=== PATIENT | female | born 1965 | race Caucasian/White ===

== ENCOUNTER → 2016-10-02 | Outpatient (CLI) | payer BC ==
--- NOTE | 2016-10-02 16:49 | MAMMOGRAPHY REPORT ---
BILATERAL DIGITAL SCREENING MAMMOGRAM TOMOSYNTHESIS WITH CAD: 10/02/2016 CLINICAL HISTORY: Routine screening. Patient has no complaints. TECHNIQUE: Breast tomosynthesis in addition to standard 2D mammography was performed. Current study was also evaluated with a Computer Aided Detection (CAD) system. COMPARISON: Comparison is made to exams dated: 09/18/2015 mammogram, 08/18/2013 mammogram, 09/07/2014 m ammogram, 08/13/2012 mammogram, 07/22/2011 mammogram, and 07/18/2010 mammogram - [facility]. BREAST COMPOSITION: The tissue of both breasts is heterogeneously dense, which may obscure small ma sses. FINDINGS: No suspicious masses, calcifications, or areas of architectural distortion are noted in e ither breast. There has been no significant interval change compared to prior exams. IMPRESSION: ACR BI-RADS CATEGORY 1: NEGATIVE There is no mammographic evidence of malignancy. A 1 year screening mammogram is recommended. The p atient will receive written notification of the results. Approximately 10% of breast cancers are not detected with mammography. A negative mammographic repor t should not delay biopsy if a clinically suggestive mass is present. Danyelle Pandey M.D. ah/:10/02/2016 15:57:36 Back Tender: Craig SANTOYO(R)(M), [facility] letter sent: Normal 1/2 BI-RADS Code: ACR BI-RADS Category 1: Negative
== END | disposition home or self-care (01) ==
LOC: C.MAMM 15:09
PROVIDERS: ATTEND Family Medicine
DX: Z12.31 Encounter for screening mammogram for malignant neoplasm of breast (principal)

== ENCOUNTER 2017-06-08 11:17 | Emergency (ER) | payer OTHER, BC ==
[~2017-06-08] VITALS: Ht 157.5 cm; Wt 70.5 kg
[2017-06-08 11:43] VITALS: TEMP 36.7; Ht 157.5 cm; Wt 70.5 kg
[2017-06-08] MEDS ORDERED: SODIUM CHLORIDE 0.9% 1000ML 1,000 ML IV STA (12:17)
[2017-06-08] MEDS ORDERED: ONDANSETRON INJ 2 MG/ML 2 ML VIAL IV STA ×2 (12:17→13:01)
[2017-06-08] MEDS ORDERED: MECLIZINE HCL 25 MG TAB PO STA (12:17)
[2017-06-08 12:52] LABS: BASO % 0.2 %; BASO ABS # 0.02 K/uL (0-0.2); COMPLETE YES; EOS % 0.7 %; HEMATOCRIT 43.1 % (37-47); IG% 0.2 %; LYMPH % 12.8 %; LYMPH ABS # 1.06 K/uL (1.2-3.4); MEAN CELL VOLUME 93.7 fL (80-100); MEAN CORPUSCULAR HEMOGLOBIN 32.4 pg (25-34); MEAN CORPUSCULAR HGB CONC 34.6 g/dl (32-36); MEAN PLATELET VOLUME 9.9 fL (7.4-10.4); MONO % 4.7 %; NEUT % 81.4 %; PLATELET COUNT 227 K/uL (130-400); WHITE BLOOD COUNT 8.25 K/uL (4.8-10.8)
[2017-06-08] MEDS ORDERED: MoRPHine SULFATE 4 MG/ML 1 ML CARP\\VIAL IV STA (13:01)
[2017-06-08] MEDS ORDERED: METH2.5T PO (13:01)
[2017-06-08] MEDS ORDERED: SUMA50TA15 PO (13:01)
[2017-06-08] MEDS ORDERED: FLV1 PO (13:01)
[2017-06-08 13:13] LABS: ALT/SGPT 41 U/L (12-78); AST/SGOT 25 U/L (15-37); BLOOD UREA NITROGEN 17 mg/dl (7-18); BUN/CREATININE RATIO 24.5 (10-20); CALCIUM 9.3 mg/dl (8.5-10.1); CARBON DIOXIDE 24 mmol/L (21-32); CHLORIDE 107 mmol/L (98-107); CREATININE 0.69 mg/dl (0.60-1.20); GLUCOSE 90 mg/dl (70-99); POTASSIUM 3.4 mmol/L (3.5-5.1); SODIUM 142 mmol/L (136-145)
[2017-06-08 13:15] LABS: ALKALINE PHOSPHATASE 134 U/L (45-117)
--- NOTE | 2017-06-08 13:30 | DIAGNOSTIC IMAGING REPORT ---
CALVARIUM 2 VIEWS CLINICAL HISTORY: Shunt series. History of brain tumor resection. FINDINGS: AP and lateral calvarial radiographs are correlated with CT of the brain dated 06/08/2017. The skeletal structures are well mineralized. There are postoperative changes from occipital craniectomy. A right parietal ishan hole is noted. No calvarial fracture is seen. A shunt catheter is faintly visualized and projects over the lateral ventricles. The catheter is not well evaluated. The visualized nasal sinuses appear clear. IMPRESSION: 1. No acute bony abnormality is seen. 2. Postoperative change from occipital craniectomy as above. 3. A shunt catheter is faintly visualized and projects over the ventricles. This is not well assessed and was much better evaluated on the recent CT scan. Electronically signed by: Mihai Dukes M.D. 06/08/2017 1:29 PM Dictated Date/Time: 06/08/2017 1:26 PM
--- NOTE | 2017-06-08 13:39 | DIAGNOSTIC IMAGING REPORT ---
ABDOMEN 2 VIEWS HISTORY: shunt series COMPARISON: FINDINGS: There is no pneumoperitoneum or pneumatosis. The bowel gas pattern is unremarkable. No evidence for bowel obstruction. No renal or ureteral calculi. A shunt catheter is not clearly identified. IMPRESSION: A shunt catheter is not clearly identified within the abdomen or pelvis. Electronically signed by: Donnie Beach M.D. 06/08/2017 1:37 PM Dictated Date/Time: 06/08/2017 1:36 PM
--- NOTE | 2017-06-08 13:42 | DIAGNOSTIC IMAGING REPORT ---
CHEST 2 VIEWS ROUTINE CLINICAL HISTORY: shunt series COMPARISON STUDY: No previous studies for comparison. FINDINGS: The cardiac and mediastinal contours are normal. There is no failure. There is no focal pulmonary consolidation. There is a tiny metallic clip in the right superior anterior mediastinal region[. No pleural effusions are visualized. No radiopaque shunt tubing is delineated. IMPRESSION: 1. No active disease in the chest 2. No radiopaque shunt tubing is visualized. Electronically signed by: Enrrique Marte M.D. 06/08/2017 1:41 PM Dictated Date/Time: 06/08/2017 1:39 PM
--- NOTE | 2017-06-08 13:48 | DIAGNOSTIC IMAGING REPORT ---
CERVICAL SPINE 2 OR 3 VIEWS CLINICAL HISTORY: shunt series history of brain tumor and shunt. COMPARISON STUDY: No previous studies for comparison. FINDINGS: There are multilevel degenerative changes. There is mild anterolisthesis of C4 on C5 likely degenerative. There is a mild levoscoliosis. No fractures are visualized. There are faint curvilinear densities within the right neck. It is unclear whether this represents a faintly opaque shunt catheter, or calcification surrounding a shunt catheter which has been previously removed. Clinical correlation this regard will be necessary. There is a tiny radiopaque density projected over the vena cava. This could represent a radiopaque marker of a shunt catheter. IMPRESSION: 1. Multilevel degenerative change 2. Faint curvilinear densities within the right neck. Is unclear whether these represent a faintly opaque shunt catheter, or calcification surrounding the shunt catheter which has been previously removed. Clinical correlation in this regard will be necessary. Electronically signed by: Enrrique Marte M.D. 06/08/2017 1:46 PM Dictated Date/Time: 06/08/2017 1:42 PM
--- NOTE | 2017-06-08 14:19 | DIAGNOSTIC IMAGING REPORT ---
Brain MRI WITHOUT CONTRAST HISTORY: Severe headache. trauma ? Bleed TECHNIQUE: Multiplanar multisequence MRI of the brain was performed without the use of contrast. COMPARISON STUDY: Head CT 06/08/2017. Brain MRI 11/15/2010. FINDINGS: There is no mass, hematoma, midline shift, acute infarct. Encephalomalacia within the inferior cerebellum remains unchanged. Surrounding increased T2 signal favors scoliosis. 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 Right ventriculostomy catheter crosses the midline and terminates in the body of the left lateral ventricle. The major vascular flow-voids at the skull base are well-maintained. Moderate mucosal thickening within the left max a sinus and small fluid levels within the maxillary sinuses. The mastoid air cells are clear. 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 Evidence for occipital craniectomy. IMPRESSION: 1. Acute on chronic maxillary sinusitis. 2. Otherwise, no significant change in the postoperative changes and chronic changes as described above. No acute intracranial abnormality. Specifically, there is no hemorrhage identified within the right frontal lobe. 3. Right ventriculostomy catheter is unchanged in position. 4. 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 Electronically signed by: Donnie Beach M.D. 06/08/2017 2:18 PM Dictated Date/Time: 06/08/2017 2:08 PM
[2017-06-08 14:49] VITALS: BP 142/82; PULSE 77; O2SAT 99
--- NOTE | 2017-06-08 15:11 | EMERGENCY ROOM VISIT NOTE ---
History Report prepared by Bobo: Jennifer Gonzalez Under the Supervision of: Dr. Sami Cerna D.O. First contact with patient: 11:57 Chief Complaint: HEAD INJURY (MAJOR) Stated Complaint: HEAD INJURY-WORK RELATED INJURY History of Present Illness The patient is a 51 year old female who presents to the Emergency Room with complaints of a persistent headache that began three days ago. She currently rates her discomfort as a 10/10 in severity. The patient states that at work this past Thursday she hit her head on a dryer door. She states that she did not think anything of the headache she developed after the event. The patient states that today while at work her headache worsened and she became dizzy. 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 The patient states that after going back to occupational health after the CT they suggested a repeat CT scan tomorrow. She states that she was additionally told to come to the emergency department since her headache is unbearable. The patient states that her vision was shaky this morning. She reports a history of a benign brain tumor at 3 years old and states that she had a shunt placed. The patient denies fevers, chest pain, shortness of breath, nausea, vomiting, diarrhea, weakness, numbness, pain with urination, and melena. Source of History: patient Onset: three days ago Position: head Symptom Intensity: 10/10 Quality: ache Timing: other (persistent) Note: Associated Symptoms: dizziness, shaky vision Review of Systems See HPI for pertinent positives & negatives. A total of 10 systems reviewed and were otherwise negative. Past Medical & Surgical Medical Problems: (1) Benign brain tumor Surgical Problems: (1) History of brain shunt Family History No pertinent family history stated Social History Smoking Status: Never Smoker Marital Status: Housing Status: lives with significant other Occupation Status: employed Current/Historical Medications Scheduled Folic Acid (Folic Acid), 1 TAB PO DAILY Methotrexate (Methotrexate), 6 TAB PO WK Sumatriptan Succinate (Imitrex), 50 MG PO PRN Allergies Coded Allergies: No Known Allergies (Verified , 06/08/17) Physical Exam Vital Signs Date Time Temp Pulse Resp B/P (MAP) Pulse Ox O2 Delivery O2 Flow Rate FiO2 06/08/17 14:49 77 16 142/82 99 06/08/17 14:08 77 16 140/82 99 Room Air 06/08/17 13:22 78 18 151/97 100 Room Air 06/08/17 12:30 73 16 138/96 100 Room Air 06/08/17 11:48 18 06/08/17 11:43 36.7 83 18 149/100 99 Room Air Physical Exam GENERAL: Sitting up in bed, alert, well appearing, well nourished, no distress, non-toxic EYE EXAM: normal conjunctiva. PERRL and EOM's intact. OROPHARYNX: no exudate, no erythema, lips, buccal mucosa, and tongue normal and mucous membranes are moist NECK: supple, no nuchal rigidity, no adenopathy, non-tender LUNGS: Clear to auscultation. Normal chest wall mechanics HEART: no murmurs, S1 normal and S2 normal ABDOMEN: abdomen soft, non-tender, normo-active bowel sounds, no masses, no rebound or guarding. BACK: Back is symmetrical on inspection and there is no deformity, no midline tenderness, no CVA tenderness. SKIN: no rashes and no bruising UPPER EXTREMITIES: upper extremities are grossly normal. LOWER EXTREMITIES: No pitting edema. NEURO EXAM: Normal sensorium, cranial nerves II-XII intact, normal speech, no weakness of arms, no weakness of legs. No drift. Finger to nose intact. Gross sensation intact. Medical Decision & Procedures ER Provider Diagnostic Interpretation: Radiology results as stated below per my review and the radiologist's interpretation: CHEST 2 VIEWS ROUTINE CLINICAL HISTORY: shunt series COMPARISON STUDY: No previous studies for comparison. FINDINGS: The cardiac and mediastinal contours are normal. There is no failure. There is no focal pulmonary consolidation. There is a tiny metallic clip in the right superior anterior mediastinal region[. No pleural effusions are visualized. No radiopaque shunt tubing is delineated. IMPRESSION: 1. No active disease in the chest 2. No radiopaque shunt tubing is visualized. Electronically signed by: Enrrique Marte M.D. 06/08/2017 1:41 PM Dictated Date/Time: 06/08/2017 1:39 PM CERVICAL SPINE 2 OR 3 VIEWS CLINICAL HISTORY: shunt series history of brain tumor and shunt. COMPARISON STUDY: No previous studies for comparison. FINDINGS: There are multilevel degenerative changes. There is mild anterolisthesis of C4 on C5 likely degenerative. There is a mild levoscoliosis. No fractures are visualized. There are faint curvilinear densities within the right neck. It is unclear whether this represents a faintly opaque shunt catheter, or calcification surrounding a shunt catheter which has been previously removed. Clinical correlation this regard will be necessary. There is a tiny radiopaque density projected over the vena cava. This could represent a radiopaque marker of a shunt catheter. IMPRESSION: 1. Multilevel degenerative change 2. Faint curvilinear densities within the right neck. Is unclear whether these represent a faintly opaque shunt catheter, or calcification surrounding the shunt catheter which has been previously removed. Clinical correlation in this regard will be necessary. Electronically signed by: Enrrique Marte M.D. 06/08/2017 1:46 PM Dictated Date/Time: 06/08/2017 1:42 PM ABDOMEN 2 VIEWS HISTORY: shunt series COMPARISON: FINDINGS: There is no pneumoperitoneum or pneumatosis. The bowel gas pattern is unremarkable. No evidence for bowel obstruction. No renal or ureteral calculi. A shunt catheter is not clearly identified. IMPRESSION: A shunt catheter is not clearly identified within the abdomen or pelvis. Electronically signed by: Donnie Beach M.D. 06/08/2017 1:37 PM Dictated Date/Time: 06/08/2017 1:36 PM CALVARIUM 2 VIEWS CLINICAL HISTORY: Shunt series. History of brain tumor resection. FINDINGS: AP and lateral calvarial radiographs are correlated with CT of the brain dated 06/08/2017. The skeletal structures are well mineralized. There are postoperative changes from occipital craniectomy. A right parietal ishan hole is noted. No calvarial fracture is seen. A shunt catheter is faintly visualized and projects over the lateral ventricles. The catheter is not well evaluated. The visualized nasal sinuses appear clear. IMPRESSION: 1. No acute bony abnormality is seen. 2. Postoperative change from occipital craniectomy as above. 3. A shunt catheter is faintly visualized and projects over the ventricles. This is not well assessed and was much better evaluated on the recent CT scan. Electronically signed by: Mihai Dukes M.D. 06/08/2017 1:29 PM Dictated Date/Time: 06/08/2017 1:26 PM Brain MRI WITHOUT CONTRAST HISTORY: Severe headache. trauma ? Bleed TECHNIQUE: Multiplanar multisequence MRI of the brain was performed without the use of contrast. COMPARISON STUDY: Head CT 06/08/2017. Brain MRI 11/15/2010. FINDINGS: There is no mass, hematoma, midline shift, acute infarct. Encephalomalacia within the inferior cerebellum remains unchanged. Surrounding increased T2 signal favors scoliosis. 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 Right ventriculostomy catheter crosses the midline and terminates in the body of the left lateral ventricle. The major vascular flow-voids at the skull base are well-maintained. Moderate mucosal thickening within the left max a sinus and small fluid levels within the maxillary sinuses. The mastoid air cells are clear. 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 Evidence for occipital craniectomy. IMPRESSION: 1. Acute on chronic maxillary sinusitis. 2. Otherwise, no significant change in the postoperative changes and chronic changes as described above. No acute intracranial abnormality. Specifically, there is no hemorrhage identified within the right frontal lobe. 3. Right ventriculostomy catheter is unchanged in position. 4. 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 Electronically signed by: Donnie Beach M.D. 06/08/2017 2:18 PM Dictated Date/Time: 06/08/2017 2:08 PM Laboratory Results 06/08/17 12:30 Red Blood Count 4.60, Mean Corpuscular Volume 93.7, Mean Corpuscular Hemoglobin 32.4, Mean Corpuscular Hemoglobin Concent 34.6, Mean Platelet Volume 9.9, Neutrophils (%) (Auto) 81.4, Lymphocytes (%) (Auto) 12.8, Monocytes (%) (Auto) 4.7, Eosinophils (%) (Auto) 0.7, Basophils (%) (Auto) 0.2, Neutrophils # (Auto) 6.70, Lymphocytes # (Auto) 1.06, Monocytes # (Auto) 0.39, Eosinophils # (Auto) 0.06, Basophils # (Auto) 0.02 06/08/17 12:30 Test 06/08/17 12:30 White Blood Count 8.25 K/uL (4.8-10.8) Red Blood Count 4.60 M/uL (4.2-5.4) Hemoglobin 14.9 g/dL (12.0-16.0) Hematocrit 43.1 % (37-47) Mean Corpuscular Volume 93.7 fL (80-100) Mean Corpuscular Hemoglobin 32.4 pg (25-34) Mean Corpuscular Hemoglobin Concent 34.6 g/dl (32-36) Platelet Count 227 K/uL (130-400) Mean Platelet Volume 9.9 fL (7.4-10.4) Neutrophils (%) (Auto) 81.4 % Lymphocytes (%) (Auto) 12.8 % Monocytes (%) (Auto) 4.7 % Eosinophils (%) (Auto) 0.7 % Basophils (%) (Auto) 0.2 % Neutrophils # (Auto) 6.70 K/uL (1.4-6.5) Lymphocytes # (Auto) 1.06 K/uL (1.2-3.4) Monocytes # (Auto) 0.39 K/uL (0.11-0.59) Eosinophils # (Auto) 0.06 K/uL (0-0.5) Basophils # (Auto) 0.02 K/uL (0-0.2) RDW Standard Deviation 46.0 fL (36.4-46.3) RDW Coefficient of Variation 13.5 % (11.5-14.5) Immature Granulocyte % (Auto) 0.2 % Immature Granulocyte # (Auto) 0.02 K/uL (0.00-0.02) Anion Gap 11.0 mmol/L (3-11) Est Creatinine Clear Calc Drug Dose 88.7 ml/min Estimated GFR () 116.8 Estimated GFR (Non- 100.8 BUN/Creatinine Ratio 24.5 (10-20) Calcium Level 9.3 mg/dl (8.5-10.1) Total Bilirubin 0.7 mg/dl (0.2-1) Direct Bilirubin < 0.1 mg/dl (0-0.2) Aspartate Amino Transf (AST/SGOT) 25 U/L (15-37) Alanine Aminotransferase (ALT/SGPT) 41 U/L (12-78) Alkaline Phosphatase 134 U/L (45-117) Total Protein 7.9 gm/dl (6.4-8.2) Albumin 4.3 gm/dl (3.4-5.0) Laboratory results per my review. Medications Administered Medications (Trade) Dose Ordered Sig/Pablo Route Start Time Stop Time Status Last Admin Dose Admin Sodium Chloride 1,000 ml @ 999 mls/hr Q1H1M STAT IV 06/08/17 12:17 06/08/17 13:17 DC 11/20/17 12:17 999 MLS/HR Ondansetron HCl (Zofran Inj) 4 mg NOW STAT IV 06/08/17 12:17 06/08/17 12:20 DC 06/08/17 12:35 4 MG Meclizine HCl (Antivert Tab) 25 mg NOW STAT PO 06/08/17 12:17 06/08/17 12:20 DC 06/08/17 12:35 25 MG Morphine Sulfate (MoRPHine SULFATE INJ) 4 mg NOW STAT IV 06/08/17 13:01 06/08/17 13:03 DC 06/08/17 13:24 4 MG Ondansetron HCl (Zofran Inj) 4 mg NOW STAT IV 06/08/17 13:01 06/08/17 13:03 DC 06/08/17 13:24 4 MG ED Course ED COURSE: Vital signs were reviewed and showed normal vitals The patients medical record was reviewed The above diagnostic studies were performed and reviewed. ED treatments and interventions as stated above. 1208: The patient was evaluated in room C8. A complete history and physical examination was performed. 1217: Ordered Antivert Tab 25 mg PO, Zofran Inj 4 mg IV, Sodium Chloride 1000 ml @ 999 mls/hr IV. 1224: I spoke to Dr. Santa, Radiology at this time. He recommends an MRI of the brain. 1244: I reevaluated the patient and she is resting. I updated her on the plan at this time. 1301: Ordered Zofran Inj 4 mg IV, Morphine Sulfate 4 mg IV. 1358: I reevaluated the patient and she is at MRI. 1425: Upon reevaluation, the patient is feeling significantly better.I discussed my findings with the patient and she understands and agrees with the treatment plan. Based on the patients age, coexisting illnesses, exam and lab findings the decision to treat as an outpatient was made. The patient remained stable while under my care. The patient appeared well at the time of discharge. Medical Decision Differential Diagnosis includes but is not limited to headache, tension headache , cluster headache, migraine, subarachnoid hemorrhage, meningitis, mass, central venous thrombus, concussion, trauma and epidural/subdural hemorrhage. Patient is a 51-year-old female who presents to ER for headache associated with dizziness. She notes the headache started Thursday when she hit her head on the washer while at work. The dizziness started today. She had a CT of her head which showed a hyperdensity in recommended repeat imaging 12 hours. She is referred in by her physician. Completely neurologically intact. CBC all BMP, LFTs, bilirubin was unremarkable. CT head was reviewed. Discussed with radiology. Multiple previous MRIs of the brain did not show this hyperdensity. Favor likely calcification. She does have a tracheostomy in place. X-rays of the neck chest and abdomen were performed and showed no shunt. Patient does not remember having this removed but appears as though at some point was removed rather than this being disconnected. No enlarged ventricles. MRI was performed and does not show the hyperdensity suggesting that this is likely a calcification is clearly not a bleed. Patient was updated bedside. She was given IV morphine. She notes she feels significant better. She was discharged follow-up with her physician tomorrow as this is likely a result of a concussion. Discussed with Pt concerning signs and symptoms to watch out for. Pt was instructed to follow up with their PCP and discussed with the patient their option to return to the ED at anytime for persistent or worsening symptoms. The appropriate anticipatory guidance and out-patient management, including indications for return to the emergency department, were explained at length to the patient and understood. Medication Reconcilliation Current Medication List: was personally reviewed by me Blood Pressure Screening Patient's blood pressure: Normal blood pressure Blood pressure disposition: Did not require urgent referral Consults Time Called: 1220 Consulting Physician: Dr. Santa, Radiology Returned Call: [address] Santa, Radiology at this time. He recommends an MRI of the brain. Impression Primary Impression: Concussion Additional Impression: Closed head injury Scribe Attestation The scribe's documentation has been prepared under my direction and personally reviewed by me in its entirety. I confirm that the note above accurately reflects all work, treatment, procedures, and medical decision making performed by me. Departure Information Dispostion Home / Self-Care Referrals Elena Pérez D.O. (PCP) Forms HOME CARE DOCUMENTATION FORM, IMPORTANT VISIT INFORMATION Patient Instructions ED Concussion, My [facility] Additional Instructions Please follow up with your primary care doctor with in the next 24 hours. Any worsening of your symptoms, please return to the ED immediately. This includes any fevers greater than 100.4, worsening pain, chest pain, shortness breath, weakness or numbness in your arms or legs, confusion, change in vision, persistent nausea, vomiting, unable to eat or drink, or any other concerning signs or symptoms from your standpoint. You were given medications during this visit that will inhibit your ability to drive, operate machinery and work. Please do NOT drive, operate machinery, drink alcohol or work for the next 12hrs. Problem Qualifiers Primary Impression: Concussion Encounter type: initial encounter Loss of consciousness presence/duration: without LOC Qualified Codes: S06.0X0A - Concussion without loss of consciousness, initial encounter Additional Impression: Closed head injury Encounter type: initial encounter Qualified Codes: S09.90XA - Unspecified injury of head, initial encounter
== END 2017-06-08 14:49 | disposition home or self-care (01) ==
LOC: C.EDB 11:19 → C.EDC 14:49
DX: S06.0X0A Concussion without loss of consciousness, initial encounter (principal); W22.09XA Striking against other stationary object, initial encounter; Y92.89 Other specified places as the place of occurrence of the external cause; Y99.0 Civilian activity done for income or pay; Z79.899 Other long term (current) drug therapy

== ENCOUNTER → 2017-06-08 | Outpatient (CLI) | payer OTHER, BC ==
[~2017-06-08] MED LIST: FLV1 PO; METH2.5T PO; SUMA50TA15 PO
--- NOTE | 2017-06-08 10:34 | DIAGNOSTIC IMAGING REPORT ---
CT OF THE HEAD WITHOUT CONTRAST CLINICAL HISTORY: Headache status post trauma. COMPARISON STUDY: MRI of the brain November 15, 2010. CT DOSE: 537.48 mGy.cm TECHNIQUE: Helical axial images of the head were obtained without IV contrast. Automated exposure control was utilized for the study. A dose lowering technique was utilized adhering to the principles of ALARA. FINDINGS: The ventricular system is stable. Position of a right ventriculostomy catheter is unchanged. Tip is within the body of the left lateral ventricle. The basilar cisterns are patent. There are no extra-axial collections. There are postoperative findings consistent with an occipital craniectomy with multifocal encephalomalacia within the bilateral cerebellar hemispheres which is unchanged since prior MRI of November 15, 2010. Note is made of a 6 mm hyperdense focus within the right frontal lobe shown on image 47 [id number]. There are no calvarial fractures. A tiny air-fluid level within left maxillary sinus is noted. There is moderate mucosal thickening of the ethmoid sinuses. IMPRESSION: 1. 6 mm hyperdense focus within the right frontal lobe. The appearance favors parenchymal calcification. A small focus of hemorrhage is considered much less likely. A follow-up short-term head CT in 12 to 24 hours is recommended. 2. Stable ventricular size with right ventriculostomy catheter unchanged in position. 3. Stable postoperative findings, as described above. Electronically signed by: Hiro Santa M.D. 06/08/2017 10:33 AM Dictated Date/Time: 06/08/2017 10:13 AM
== END | disposition home or self-care (01) ==
LOC: C.CTS 09:46
PROVIDERS: ATTEND Nurse Practitioner Adult Health
DX: R51 Headache (principal); Z87.828 Personal history of other (healed) physical injury and trauma

== ENCOUNTER → 2017-10-05 | Outpatient (CLI) | payer OTHER ==
--- NOTE | 2017-10-06 14:57 | MAMMOGRAPHY REPORT ---
BILATERAL DIGITAL SCREENING MAMMOGRAM TOMOSYNTHESIS WITH CAD: 10/05/2017 CLINICAL HISTORY: Routine screening. Patient has no complaints. TECHNIQUE: Breast tomosynthesis in addition to standard 2D mammography was performed. Current study was also evaluated with a Computer Aided Detection (CAD) system. COMPARISON: Comparison is made to exams dated: 10/02/2016 mammogram, 09/18/2015 mammogram, 09/07/2014 ma mmogram, 08/18/2013 mammogram, 08/13/2012 mammogram, and 07/22/2011 mammogram - [facility] ter. BREAST COMPOSITION: The tissue of both breasts is heterogeneously dense, which may obscure small mas ses. FINDINGS: No suspicious masses, calcifications, or areas of architectural distortion are noted in ei ther breast. There has been no significant interval change compared to prior exams. IMPRESSION: ACR BI-RADS CATEGORY 1: NEGATIVE There is no mammographic evidence of malignancy. A 1 year screening mammogram is recommended. The pa tient will receive written notification of the results. Approximately 10% of breast cancers are not detected with mammography. A negative mammographic report should not delay biopsy if a clinically suggestive mass is present. Danyelle Pandey M.D. ah/:10/05/2017 15:41:38 Pharmaceutical Engineer: Stephanie SANTOYO(Elizabeth)(M), [facility] letter sent: Normal 1/2 BI-RADS Code: ACR BI-RADS Category 1: Negative
== END | disposition home or self-care (01) ==
LOC: C.MAMM 15:10
PROVIDERS: ATTEND Family Medicine
DX: Z12.31 Encounter for screening mammogram for malignant neoplasm of breast (principal)